=== PATIENT | female | born 1990 | race Hispanic/Latino ===

== ENCOUNTER 2023-11-21 10:27 | Day surgery (SDC) | payer MEDICAID, SELFPAY ==
[2023-11-21 11:03] VITALS: BMI 29.2
[2023-11-21] MEDS ORDERED: hydrALAZINE 20 MG/ML VIAL SLOW IVP PRN (11:17)
[2023-11-21 12:05] LABS: Creatinine, Urine 23.84 mg/dL (47-110); Protein, Urine Random Quant Less than 10 mg/dL (1-14)
[2023-11-21 12:15] LABS: #Basophils 0.02 10x3/uL (0.0-0.2); #Eosinphils 0.03 10x3/uL (0.0-0.5); #Monocytes 0.33 10x3/uL (0.0-1.1); %Basophils 0.3 % (0.0-2.0); %Eosinophils 0.5 % (0.0-6.0); %Lymphocytes 17.8 % (18.0-47.0); %Monocytes 5.2 % (0.0-10.0); %Neutrophils 75.1 % (40.0-75.0); Hematocrit 32.1 % (34.9-44.5); Hemoglobin 10.6 g/dL (12.0-15.5); Mean Corpuscular Hemoglobin 27.7 pg (27.0-33.0); Mean Platelet Volume 12.1 fl (7.4-10.4); Platelet Count 195 10x3/uL (150-450); RBC Distribution Width 14.1 % (11.5-14.5); Red Blood Cell (RBC) Count 3.82 10x6/uL (3.90-5.03); White Blood Cell (WBC) Count 6.4 10x3/uL (3.5-10.5)
[2023-11-21 12:48] LABS: ALT (SGPT) 14 U/L (8-55); AST (SGOT) 20 U/L (5-34); Albumin 2.8 g/dL (3.5-5.0); Alkaline Phosphatase 123 U/L (40-110); Anion Gap 14 mmol/L (10-20); BUN (Urea Nitrogen) 6 mg/dL (7.0-18.7); Bilirubin, Total 0.4 mg/dL (0.2-1.2); Calc. Creatinine Clearance 165 mL/min (70-130); Calcium 9.3 mg/dL (7.8-10.44); Carbon Dioxide 17 mmol/L (22-29); Chloride 107 mmol/L (98-107); Estimated GFR 122; Globulin 3.5 g/dL (2.4-3.5); Glucose 68 mg/dL (70-105); Potassium 3.8 mmol/L (3.5-5.1); Protein, Total 6.3 g/dL (6.0-8.3); Sodium 134 mmol/L (136-145)
== END 2023-11-21 13:50 | disposition home or self-care (01) ==
LOC: CSHLD/OP 10:27
PROVIDERS: ATTEND Obstetrics & Gynecology
DX: O13.3 Gestational [pregnancy-induced] hypertension without significant proteinuria, third trimester (principal); Z3A.36 36 weeks gestation of pregnancy; Z79.899 Other long term (current) drug therapy
CPT/HCPCS: 36415; 80053; 82570; 84156; 85025; 99283

== ENCOUNTER 2023-11-21 20:10 | Inpatient (IN) | payer MEDICAID, SELFPAY ==
[~2023-11-21 20:10] MED LIST: Bupivacaine 0.25% HCL 30 ML VIAL ONE
[2023-11-21] MEDS ORDERED: Ondansetron PF 4 MG/2 ML Vial IVP PRN (20:29)
[2023-11-21] MEDS ORDERED: hydrALAZINE 20 MG/ML VIAL SLOW IVP PRN (20:29)
[2023-11-21] MEDS ORDERED: Docusate 100 MG CAP PO PRN (20:29)
[2023-11-21] MEDS ORDERED: Promethazine HCl 25 MG/ML VIAL IM PRN (20:29)
[2023-11-21] MEDS ORDERED: Methylergonovine 0.2 MG/ML VIAL IM PRN (20:29)
[2023-11-21] MEDS ORDERED: Misoprostol 200 MCG TAB PR PRN (20:29)
[2023-11-21] MEDS ORDERED: Tranexamic Acid 1,000 MG/10 ML VIAL IVP PRN (20:29)
[2023-11-21] MEDS ORDERED: Carboprost 250 MCG/ML AMP IM PRN (20:29)
[2023-11-21] MEDS ORDERED: Acetaminophen 500 MG TAB PO PRN (20:29)
[2023-11-21] MEDS ORDERED: Lidocaine 1% (PF) 30 ML VIAL SC PRN (20:29)
[2023-11-21 20:41] VITALS: BMI 29.2
[2023-11-21] MEDS ORDERED: Oxytocin 30 units/NS 500 ML 500 ML IV SCH (21:00)
[2023-11-21 21:16] LABS: Hematocrit 31.3 % (34.9-44.5); Hemoglobin 10.7 g/dL (12.0-15.5); Mean Corpuscular HGB CONC 34.2 g/dL (32.0-36.0); Mean Corpuscular Hemoglobin 28.2 pg (27.0-33.0); Mean Corpuscular Volume 82.6 fl (81.6-98.3); Mean Platelet Volume 11.5 fl (7.4-10.4); Platelet Count 210 10x3/uL (150-450); RBC Distribution Width 14.2 % (11.5-14.5); Red Blood Cell (RBC) Count 3.79 10x6/uL (3.90-5.03); White Blood Cell (WBC) Count 6.8 10x3/uL (3.5-10.5)
[2023-11-21 21:59] LABS: HBsAg Index 0.34 S/CO (0-0.99); Hep B Surf Ag - L&D Non-Reactive S/CO (NonReactive)
[2023-11-21 22:00] LABS: Syphilis Antibody Nonreactive (Nonreactive); Syphilis Antibody Index 0.11 S/CO (<1.00 Non-Reactive)
[2023-11-22] MEDS: Misoprostol 100 MCG TAB VAG SCH (00:07)
[2023-11-22] MEDS: Lactated Ringer's 1,000 ML IV SCH (05:00)
[2023-11-22] MEDS: Oxytocin 30 units/NS 500 ML 500 ML IV SCH (05:00)
[2023-11-22] MEDS: fentaNYL 50 mcg/mL 1 mL Vial SLOW IVP PRN (10:03)
[2023-11-22] MEDS: fentaNYL/Ropivacaine Epidural 100 ML ONE (11:08)
[2023-11-22] MEDS ORDERED: Lactated Ringer's 500 ML IV PRN (11:10)
[2023-11-22] MEDS ORDERED: Moisturizing Cream (Eucerin) 113 GM JAR TOP PRN (11:10)
[2023-11-22] MEDS ORDERED: ePHEDrine Sulfate 50 MG/10 ML VIAL SLOW IVP PRN (11:10)
[2023-11-22] MEDS ORDERED: Ondansetron PF 4 MG/2 ML Vial IVP PRN (11:10)
[2023-11-22] MEDS ORDERED: diphenhydrAMINE 50 MG/ML VIAL IVP PRN (11:10)
[2023-11-22] MEDS ORDERED: Acetaminophen 325 MG TAB PO PRN (11:10)
[2023-11-22] MEDS ORDERED: Promethazine HCl 25 MG/ML VIAL IM PRN (11:10)
[2023-11-22] MEDS ORDERED: Naloxone HCl 0.4 mg/ml Vial IVP PRN ×2 (11:10)
[2023-11-22] MEDS ORDERED: Communication Order-Pharmacy FS SCH (11:15)
[2023-11-22] MEDS ORDERED: fentaNYL 2 mcg/Ropivacaine 0.2% Epidural 100 ML CADD EPIDURAL SCH (11:15)
[2023-11-22] MEDS ORDERED: Bisacodyl 10 MG SUPP PR PRN (15:56)
[2023-11-22] MEDS ORDERED: Milk Of Magnesia 30 ML UDCUP PO PRN (15:56)
[2023-11-22] MEDS ORDERED: Preparation H Ointment 28 GM TUBE PR PRN (15:56)
[2023-11-22] MEDS ORDERED: Lanolin Ointment 7 GM TUBE TOP PRN (15:56)
[2023-11-22] MEDS ORDERED: Benzocaine-Menthol 82.5 ML CAN TOP PRN (15:56)
[2023-11-22] MEDS: Acetaminophen 500 MG TAB PO SCH (17:59)
[2023-11-22] MEDS: Ibuprofen 800 MG TAB PO SCH ×2 (17:59→21:24)
[2023-11-22] MEDS: Boostrix 0.5 ML (Tdap) VIAL (>/=7 yrs of age) IM ONE (18:01)
[2023-11-22] MEDS: Ferrous Sulfate 325 MG TAB PO SCH (18:41)
[2023-11-22] MEDS: Docusate 100 MG CAP PO SCH (21:24)
[2023-11-23] MEDS: Prenatal Vitamin 1 TAB PO SCH (08:32)
[2023-11-23 11:12] VITALS: BP 122/74; TEMP 98.2
== END 2023-11-23 15:40 | disposition home or self-care (01) | DRG 807 ==
LOC: CSHLD 20:10 → CSHPP 11-22 14:25
PROVIDERS: ADMIT Family Medicine; ATTEND Family Medicine
PROC: 10E0XZZ Delivery of Products of Conception, External Approach (ICD-10-PCS; principal; 2023-11-22)
PROC: 10907ZC Drainage of Amniotic Fluid, Therapeutic from Products of Conception, Via Natural or Artificial Opening (ICD-10-PCS; 2023-11-22)
PROC: 10H07YZ Insertion of Other Device into Products of Conception, Via Natural or Artificial Opening (ICD-10-PCS; 2023-11-22)
DX: O13.4 Gestational [pregnancy-induced] hypertension without significant proteinuria, complicating childbirth (principal); Z37.0 Single live birth; Z3A.36 36 weeks gestation of pregnancy; Z79.899 Other long term (current) drug therapy; O69.81X0 Labor and delivery complicated by cord around neck, without compression, not applicable or unspecified
CPT/HCPCS: 36415; 86780; 86850; 86900; 86901; 87340; J0665; J2590; J3010; J7120